=== PATIENT | female | born 1960 | race Caucasian/White ===

== ENCOUNTER 2019-12-19 13:24 | Inpatient (IN) | payer OTHER ==
[~2019-12-19] VITALS: Ht 119.4 cm; Wt 77.3 kg
[~2019-12-19 13:24] MED LIST: ALBU90OI61 INH; Diclofenac Sodi50 MG PO; LOSA25 PO; TROSPIUM CHLORI20 MG PO; VITAMIN D50000 UNIT PO
[2019-12-19 14:49] LABS: BASOPHILS ABSOLUTE AUTO 0.04 K/mm3 (0.00-0.23); BASOPHILS PERCENT AUTO 0 % (0-2); EOSINOPHILS ABSOLUTE AUTO 0.07 K/mm3 (0.00-0.68); EOSINOPHILS PERCENT AUTO 1 % (0-6); Hematocrit 37.7 % (33.0-51.0); IMMATURE GRAN ABSOLUTE AUTO 0.16 K/mm3 (0.00-0.10); IMMATURE GRAN PERCENT AUTO 1 % (0-1); LYMPHOCYTES ABSOLUTE AUTO 1.45 K/mm3 (0.84-5.20); LYMPHOCYTES PERCENT AUTO 10 % (21-46); MONOCYTES ABSOLUTE AUTO 0.99 K/mm3 (0.16-1.47); MONOCYTES PERCENT AUTO 7 % (4-13); Mean Corpuscular HGB 26.8 pg (26.0-34.0); Mean Corpuscular HGB Conc 31.8 g/dL (31.5-36.5); Mean Corpuscular Volume 84 fL (80-100); Mean Platelet Volume 9.7 fL (9.1-12.4); NEUTROPHILS ABSOLUTE AUTO 11.66 K/mm3 (1.96-9.15); NEUTROPHILS PERCENT AUTO 81 % (41-73); Platelet Count 461 K/mm3 (150-400); RDW Coefficient Variation 15.4 % (11.7-14.2); Red Blood Cell Count 4.47 M/mm3 (3.80-5.20); White Blood Cell Count 14.37 K/mm3 (4.00-11.30)
[2019-12-19 15:17] LABS: Alanine Aminotransfer (ALT/SGP 21 U/L (12-78); Albumin, Blood 2.3 g/dL (3.4-5.0); Albumin/Globulin Ratio 0.5 (0.8-1.8); Alk Phos 77 U/L (50-136); Anion Gap 6 mmol/L (6-16); Aspartate Aminotrans (AST/SGOT 16 U/L (12-37); Bilirubin, Total 0.4 mg/dL (0.1-1.0); Blood Urea Nitrogen 20 mg/dL (8-24); CO2, Blood 25 mmol/L (21-32); Calcium, Blood 8.5 mg/dL (8.5-10.1); Chloride, Blood 108 mmol/L (98-108); Creatinine, Blood 0.51 mg/dL (0.40-1.00); Globulin, Blood 4.6 g/dL (2.2-4.0); Glomerular Filtration Rate >60 (60-); Glucose, Blood 104 mg/dL (70-99); Potassium, Blood 3.8 mmol/L (3.5-5.5); Sodium, Blood 139 mmol/L (136-145); Total Protein, Blood 6.9 g/dL (6.4-8.2)
[2019-12-19] MEDS ORDERED: ALBU90OI INH (16:17)
[2019-12-19 19:08] LABS: International Normalized Ratio 1.17; Prothrombin Time Results 12.4 Sec (9.7-11.5)
[2019-12-19] MEDS ORDERED: Buspirone HCl15 MG PO (19:12)
[2019-12-19] MEDS ORDERED: CYCL10 PO (19:12)
[2019-12-20 04:58] LABS: BASOPHILS ABSOLUTE AUTO 0.03 K/mm3 (0.00-0.23); BASOPHILS PERCENT AUTO 0 % (0-2); EOSINOPHILS ABSOLUTE AUTO 0.11 K/mm3 (0.00-0.68); EOSINOPHILS PERCENT AUTO 1 % (0-6); Hematocrit 32.7 % (33.0-51.0); Hemoglobin 9.9 g/dL (11.5-16.0); IMMATURE GRAN PERCENT AUTO 1 % (0-1); LYMPHOCYTES ABSOLUTE AUTO 1.94 K/mm3 (0.84-5.20); LYMPHOCYTES PERCENT AUTO 24 % (21-46); MONOCYTES PERCENT AUTO 7 % (4-13); Mean Corpuscular HGB 26.1 pg (26.0-34.0); Mean Corpuscular HGB Conc 30.3 g/dL (31.5-36.5); Mean Corpuscular Volume 86 fL (80-100); Mean Platelet Volume 9.7 fL (9.1-12.4); NEUTROPHILS ABSOLUTE AUTO 5.48 K/mm3 (1.96-9.15); NEUTROPHILS PERCENT AUTO 66 % (41-73); Platelet Count 410 K/mm3 (150-400); RDW Coefficient Variation 15.6 % (11.7-14.2); RDW Standard Deviation 48.7 fL (35.1-46.3); Red Blood Cell Count 3.79 M/mm3 (3.80-5.20); White Blood Cell Count 8.26 K/mm3 (4.00-11.30)
[2019-12-20 05:24] LABS: Anion Gap 7 mmol/L (6-16); Blood Urea Nitrogen 17 mg/dL (8-24); Bun/Creatinine Ratio 37.7 (12.0-20.0); CO2, Blood 21 mmol/L (21-32); Calcium, Blood 7.4 mg/dL (8.5-10.1); Chloride, Blood 113 mmol/L (98-108); Creatinine, Blood 0.45 mg/dL (0.40-1.00); Glomerular Filtration Rate >60 (60-); Glucose, Blood 78 mg/dL (70-99); Potassium, Blood 3.9 mmol/L (3.5-5.5); Sodium, Blood 141 mmol/L (136-145)
--- NOTE | 2019-12-20 06:03 | NUR ---
SUMMARY PT ARRIVED TO FLOOR IN NO DISTRESS. PT AOX4. PT ONLY REQUEST WAS TO SLEEP. PT SKIN WAS CLEANED AND DRIED. PICTURES OF SKIN ISSUES WERE TAKEN AND PLACED IN CHART. PT REPORTS THIS AM THE URGE TO VOID BUT UNABLE TO VIA BEDPAN. PT BLADDER SCAN SHOWED ONLY 350 ML. PT ONLY COMPLAINT IS LOW BACK PAIN THAT IS RESOLVED WITH REPOSITIONING IN BED. NYSTATIN HAS BEEN ORDERED FOR SKIN FOLD YEAST ISSUES. PT HAS BEEN SLEEPING T/O SINCE ARRIVING TO FLOOR. PROVIDER CONSULT WAS CALLED IN. PT CURRENTLY SLEEPIN AND BREATHING EASY. CALL LIGHT IN REACH.
[2019-12-20 06:04] LABS: Adenovirus Not Detected (NOT DETECT); Bordetella pertussis Not Detected (NOT DETECT); Chlamydophila pneumoniae Not Detected (NOT DETECT); Coronavirus 229E Not Detected (NOT DETECT); Coronavirus HKU1 Not Detected (NOT DETECT); Coronavirus NL63 Not Detected (NOT DETECT); Coronavirus OC43 Not Detected (NOT DETECT); Human Metapneumovirus Not Detected (NOT DETECT); Human Rhinovirus/Enterovirus Not Detected (NOT DETECT); Influenza A Not Detected (NOT DETECT); Influenza A/2009-H1 Not Detected (NOT DETECT); Influenza A/H1 Not Detected (NOT DETECT); Influenza A/H3 Not Detected (NOT DETECT); Influenza B Not Detected (NOT DETECT); Mycoplasma pneumoniae Not Detected (NOT DETECT); Parainfluenza Virus 1 Not Detected (NOT DETECT); Parainfluenza Virus 2 Not Detected (NOT DETECT); Parainfluenza Virus 3 Not Detected (NOT DETECT); Parainfluenza Virus 4 Not Detected (NOT DETECT); Respiratory Syncytial Virus Not Detected (NOT DETECT)
[2019-12-20 11:05] LABS: Source, Urine Catheter
[2019-12-20 11:16] LABS: Bilirubin, Urine Neg (Neg); Blood, Urine Neg (Neg); Glucose Qualitative, Urine Neg (Neg); Ketones, Urine 1+ (Neg); Leukocyte Esterase, Urine Neg (Neg); Nitrite, Urine Neg (Neg); Protein, Urine 1+ (Neg); Specific Gravity, Urine 1.025 (1.003-1.022); Urobilinogen, Urine 1+ (Normal)
[2019-12-20 11:30] LABS: Color, Urine Yellow (P-Yellow)
[2019-12-20 11:32] LABS: Appearance, Urine Hazy (Clear)
[2019-12-20 11:33] LABS: White Blood Cells, Urine 0-2 /hpf (0-5)
[2019-12-20 11:34] LABS: Bacteria Rare /hpf; Calcium Oxalate Crystals Mod /hpf; Mucus Light (0-Heavy); Squamous Epithelial Cells Few /hpf (Few)
--- NOTE | 2019-12-20 17:21 | NUR ---
ALERT. ORIENTED. LIU PLACED FOR RETENTION. FOLDS CLEANED AND NYSTAIN POWDER PLACED. NONSURGICAL WOUND TO LEFT BUTTOCK. DRESSING CHANGED X 2 TODAY W/MODERATE AMOUNT OF DRAINAGE. TURNED Q 2 AND EITHER FLOATED OR UNTO RT SIDE. IV PATENT W/FLUIDS RUNNING. MEDS FOR VOMITING WITH GOOD RESULTS. NO ACUTE CHANGES. WCTM
[2019-12-20 19:52] LABS: Vancomycin, Trough 20.1 ug/mL (5.0-10.0)
--- NOTE | 2019-12-21 05:05 | NUR ---
GLUE LINE OPERATOR SUMMARY PT AAOX4 AND PLEASANT. CALLS APPROPRIATELY FOR ASSISTANCE. PT BEDREST FOR THE MOST PART AND REQUIRES ASSISTANCE WITH REPOSITIONING AND TOILETING WITH BEDPAN. DRESSING ON L THIGH/BUTTOCK WOUND C/D/I, TO BE CHANGED LATER TODAY ORDERS ARE FOR DAILY CHANGE. PT HAS BEEN VERY NAUSEAS TONIGHT AND HAS VOMITED MULTIPLE TIMES, MOSTLY AFTER EATING/DRINKING. MEDICATED WITH PHENERGAN AND ZOFRAN MULTIPLE TIMES PER EMAR. PT ABLE TO GET 3-4 HOURS OF SLEEP IN BETWEEN DOSES OF NAUSEA MEDICATION. PT UNABLE TO KEEP DOWN BEDTIME MEDS DUE TO NAUSEA. HAS BEEN TACHY ON TELEMETRY WIT HR 110-120'S. OTHER VSS, WILL CONTINUE TO MONITOR.
[2019-12-21 05:29] LABS: BASOPHILS ABSOLUTE AUTO 0.03 K/mm3 (0.00-0.23); BASOPHILS PERCENT AUTO 0 % (0-2); EOSINOPHILS ABSOLUTE AUTO 0.03 K/mm3 (0.00-0.68); EOSINOPHILS PERCENT AUTO 0 % (0-6); Hemoglobin 10.8 g/dL (11.5-16.0); IMMATURE GRAN ABSOLUTE AUTO 0.09 K/mm3 (0.00-0.10); IMMATURE GRAN PERCENT AUTO 1 % (0-1); LYMPHOCYTES ABSOLUTE AUTO 1.19 K/mm3 (0.84-5.20); LYMPHOCYTES PERCENT AUTO 15 % (21-46); MONOCYTES ABSOLUTE AUTO 0.48 K/mm3 (0.16-1.47); MONOCYTES PERCENT AUTO 6 % (4-13); Mean Corpuscular HGB 26.2 pg (26.0-34.0); Mean Corpuscular Volume 87 fL (80-100); Mean Platelet Volume 9.5 fL (9.1-12.4); NEUTROPHILS PERCENT AUTO 77 % (41-73); Platelet Count 477 K/mm3 (150-400); RDW Coefficient Variation 15.5 % (11.7-14.2); RDW Standard Deviation 48.8 fL (35.1-46.3); Red Blood Cell Count 4.12 M/mm3 (3.80-5.20); White Blood Cell Count 8.02 K/mm3 (4.00-11.30)
[2019-12-21 05:55] LABS: Anion Gap 5 mmol/L (6-16); Blood Urea Nitrogen 13 mg/dL (8-24); Bun/Creatinine Ratio 23.9 (12.0-20.0); CO2, Blood 24 mmol/L (21-32); Calcium, Blood 8.2 mg/dL (8.5-10.1); Chloride, Blood 112 mmol/L (98-108); Creatinine, Blood 0.54 mg/dL (0.40-1.00); Glomerular Filtration Rate >60 (60-); Glucose, Blood 106 mg/dL (70-99); Potassium, Blood 4.1 mmol/L (3.5-5.5); Sodium, Blood 141 mmol/L (136-145)
--- NOTE | 2019-12-21 19:21 | NUR ---
sleepy since medicated for n/v this am, rousable but sleepy no complaint of n/v, call light in reach, wound changed, 02 increased to 3.5 L via nc and canula placed in [facility] while sleeping to keep 02 stats up, abx infusing with no s/sx of infection or infiltration, bsr shared with pt and returning day staff member
--- NOTE | 2019-12-22 05:31 | NUR ---
POWERHOUSE HELPER SUMMARY NAUSEA BETTER CONTROLLED TONIGHT WITH IV COMPAZINE. IV REPLACED BY CONSULTING UTILITY FORESTER USING US GUIDANCE. CONTINUED ON IV VANCO. LEFT THIGH/BUTTOCK WOUND CLEANED AND DRESSING CHANGED TONIGHT, WOUND BED LOOKS GOOD. RASH IN VIOLETA AREA AND UNDER BREASTS AND FOLDS IMPROVING WITH FREQUENT CLEANING AND NYSTATIN POWDER. PT ABLE TO KEEP DOWN ALL PO MEDICATIONS. VSS, WILL CONTINUE TO MONITOR.
[2019-12-22 05:38] LABS: BASOPHILS ABSOLUTE AUTO 0.02 K/mm3 (0.00-0.23); BASOPHILS PERCENT AUTO 0 % (0-2); EOSINOPHILS PERCENT AUTO 0 % (0-6); Hematocrit 37.1 % (33.0-51.0); Hemoglobin 11.2 g/dL (11.5-16.0); IMMATURE GRAN PERCENT AUTO 2 % (0-1); LYMPHOCYTES ABSOLUTE AUTO 1.06 K/mm3 (0.84-5.20); LYMPHOCYTES PERCENT AUTO 11 % (21-46); MONOCYTES ABSOLUTE AUTO 0.44 K/mm3 (0.16-1.47); MONOCYTES PERCENT AUTO 5 % (4-13); Mean Corpuscular HGB 26.7 pg (26.0-34.0); Mean Corpuscular HGB Conc 30.2 g/dL (31.5-36.5); Mean Corpuscular Volume 88 fL (80-100); Mean Platelet Volume 9.4 fL (9.1-12.4); NEUTROPHILS ABSOLUTE AUTO 7.97 K/mm3 (1.96-9.15); NEUTROPHILS PERCENT AUTO 82 % (41-73); Platelet Count 457 K/mm3 (150-400); RDW Coefficient Variation 15.7 % (11.7-14.2); RDW Standard Deviation 50.4 fL (35.1-46.3); White Blood Cell Count 9.69 K/mm3 (4.00-11.30)
[2019-12-22 06:05] LABS: Anion Gap 8 mmol/L (6-16); Blood Urea Nitrogen 13 mg/dL (8-24); Bun/Creatinine Ratio 27.6 (12.0-20.0); CO2, Blood 22 mmol/L (21-32); Chloride, Blood 107 mmol/L (98-108); Creatinine, Blood 0.47 mg/dL (0.40-1.00); Glomerular Filtration Rate >60 (60-); Glucose, Blood 97 mg/dL (70-99); Potassium, Blood 3.9 mmol/L (3.5-5.5); Sodium, Blood 137 mmol/L (136-145)
--- NOTE | 2019-12-22 10:17 | NUR ---
a+o but sleepy, eyes dialated to 4 when first wake up, brisk reaction to light, PERRL, call light in reach, iv infusing with not s/sx of infection or infiltration, powder applied, medications taken with no adverse effects, hands strong pulse feet faint, good profusion all limbs, weak movement numbness in hands, hypo bowel tones 4q, soft nontender, no emisis but states she has felt nausus today, bed in low position, 4L via nc, wheeze throughout
[2019-12-22 11:32] LABS: Vancomycin, Trough 11.6 ug/mL (5.0-10.0)
--- NOTE | 2019-12-22 11:55 | NUR ---
PAULO NOT AVAILABLE SO STARTED NEXT ABX TO KEEP PT ON TRACK
[2019-12-22 15:20] LABS: BASOPHILS ABSOLUTE AUTO 0.02 K/mm3 (0.00-0.23); BASOPHILS PERCENT AUTO 0 % (0-2); EOSINOPHILS ABSOLUTE AUTO 0.02 K/mm3 (0.00-0.68); EOSINOPHILS PERCENT AUTO 0 % (0-6); Hematocrit 37.9 % (33.0-51.0); Hemoglobin 11.6 g/dL (11.5-16.0); IMMATURE GRAN PERCENT AUTO 1 % (0-1); LYMPHOCYTES ABSOLUTE AUTO 0.91 K/mm3 (0.84-5.20); LYMPHOCYTES PERCENT AUTO 9 % (21-46); MONOCYTES ABSOLUTE AUTO 0.43 K/mm3 (0.16-1.47); MONOCYTES PERCENT AUTO 4 % (4-13); Mean Corpuscular HGB 27.2 pg (26.0-34.0); Mean Corpuscular HGB Conc 30.6 g/dL (31.5-36.5); Mean Corpuscular Volume 89 fL (80-100); Mean Platelet Volume 9.4 fL (9.1-12.4); NEUTROPHILS PERCENT AUTO 85 % (41-73); Platelet Count 472 K/mm3 (150-400); RDW Coefficient Variation 15.7 % (11.7-14.2); Red Blood Cell Count 4.26 M/mm3 (3.80-5.20); White Blood Cell Count 10.08 K/mm3 (4.00-11.30)
--- NOTE | 2019-12-22 19:49 | NUR ---
A+O, BREATHING TREATMENT ELEVATED CHEST PRESSURE, CALL LIGHT IN REACH, HOB ELEVATED, IV INFUSING WITH NO S/SX OF INFECTION OR INFILTRATION, BSR SHARED WITH PT AND DAY STAFF
[2019-12-23 05:50] LABS: BASOPHILS ABSOLUTE AUTO 0.04 K/mm3 (0.00-0.23); BASOPHILS PERCENT AUTO 0 % (0-2); EOSINOPHILS ABSOLUTE AUTO 0.05 K/mm3 (0.00-0.68); EOSINOPHILS PERCENT AUTO 1 % (0-6); Hematocrit 37.2 % (33.0-51.0); Hemoglobin 11.4 g/dL (11.5-16.0); IMMATURE GRAN ABSOLUTE AUTO 0.11 K/mm3 (0.00-0.10); IMMATURE GRAN PERCENT AUTO 1 % (0-1); LYMPHOCYTES ABSOLUTE AUTO 1.32 K/mm3 (0.84-5.20); LYMPHOCYTES PERCENT AUTO 14 % (21-46); MONOCYTES ABSOLUTE AUTO 0.56 K/mm3 (0.16-1.47); MONOCYTES PERCENT AUTO 6 % (4-13); Mean Corpuscular HGB 26.6 pg (26.0-34.0); Mean Corpuscular HGB Conc 30.6 g/dL (31.5-36.5); Mean Corpuscular Volume 87 fL (80-100); Mean Platelet Volume 9.6 fL (9.1-12.4); NEUTROPHILS ABSOLUTE AUTO 7.66 K/mm3 (1.96-9.15); NEUTROPHILS PERCENT AUTO 79 % (41-73); Platelet Count 502 K/mm3 (150-400); RDW Coefficient Variation 15.9 % (11.7-14.2); Red Blood Cell Count 4.28 M/mm3 (3.80-5.20); White Blood Cell Count 9.74 K/mm3 (4.00-11.30)
--- NOTE | 2019-12-23 07:35 | NUR ---
SHIFT SUMMARY A/O, ABLE TO MAKE NEEDS KNOWN. COOPERATIVE WITH CARE. CALLS AND ANSWERS QUESTIONS APPROPRIATELY. NO C/O PAIN/DISCOMFORT. DID NOT APPEAR TO REST MUCH OVERNIGHT. TRIED CPAP AND STATED COULD NOT SLEEP WITH IT. DRESSING TO L HIP WOUND CHANGED X2; MODERATE DRAINAGE NOTED. STATES FEELS BETTER THIS AM. REMAINS ON 5L NC. NO ACUTE CHANGES NOTED. VSS/AFEBRILE. BED IN LOWEST POSITION. CALL LIGHT AND BELONGINGS WITHIN REACH. WCTM. REPORT TO ONCOMING RN.
--- NOTE | 2019-12-23 19:06 | NUR ---
NO ACUTE CHANGES. PT HAS SLEPT MOST OF SHIFT. DRESSING CHANGED TO BOTTOM
[2019-12-24 05:24] LABS: BASOPHILS ABSOLUTE AUTO 0.03 K/mm3 (0.00-0.23); BASOPHILS PERCENT AUTO 0 % (0-2); EOSINOPHILS ABSOLUTE AUTO 0.01 K/mm3 (0.00-0.68); EOSINOPHILS PERCENT AUTO 0 % (0-6); Hematocrit 36.5 % (33.0-51.0); Hemoglobin 11.5 g/dL (11.5-16.0); IMMATURE GRAN ABSOLUTE AUTO 0.11 K/mm3 (0.00-0.10); IMMATURE GRAN PERCENT AUTO 1 % (0-1); LYMPHOCYTES ABSOLUTE AUTO 0.91 K/mm3 (0.84-5.20); LYMPHOCYTES PERCENT AUTO 8 % (21-46); MONOCYTES ABSOLUTE AUTO 0.51 K/mm3 (0.16-1.47); MONOCYTES PERCENT AUTO 5 % (4-13); Mean Corpuscular HGB 26.9 pg (26.0-34.0); Mean Corpuscular HGB Conc 31.5 g/dL (31.5-36.5); Mean Corpuscular Volume 85 fL (80-100); Mean Platelet Volume 9.4 fL (9.1-12.4); NEUTROPHILS ABSOLUTE AUTO 9.65 K/mm3 (1.96-9.15); NEUTROPHILS PERCENT AUTO 86 % (41-73); NRBC ABSOLUTE 0.03 K/mm3 (0.00-0.02); NRBC Auto 0.3 /100 WBC (0.0-0.2); Platelet Count 449 K/mm3 (150-400); RDW Coefficient Variation 16.1 % (11.7-14.2); RDW Standard Deviation 47.6 fL (35.1-46.3); Red Blood Cell Count 4.28 M/mm3 (3.80-5.20); White Blood Cell Count 11.22 K/mm3 (4.00-11.30)
[2019-12-24 05:57] LABS: Alanine Aminotransfer (ALT/SGP 36 U/L (12-78); Albumin, Blood 2.2 g/dL (3.4-5.0); Albumin/Globulin Ratio 0.6 (0.8-1.8); Alk Phos 63 U/L (50-136); Anion Gap 4 mmol/L (6-16); Aspartate Aminotrans (AST/SGOT 46 U/L (12-37); Bilirubin, Total 0.4 mg/dL (0.1-1.0); Blood Urea Nitrogen 15 mg/dL (8-24); Bun/Creatinine Ratio 30.1 (12.0-20.0); CO2, Blood 28 mmol/L (21-32); Calcium, Blood 8.2 mg/dL (8.5-10.1); Chloride, Blood 104 mmol/L (98-108); Globulin, Blood 3.8 g/dL (2.2-4.0); Glomerular Filtration Rate >60 (60-); Glucose, Blood 101 mg/dL (70-99); Potassium, Blood 3.5 mmol/L (3.5-5.5); Sodium, Blood 136 mmol/L (136-145)
--- NOTE | 2019-12-24 06:15 | NUR ---
SHIFT SUMMARY ALERT, ABLE TO MAKE NEEDS KNOWN. COOPERATIVE WITH CARE. CALLS AND ANSWERS QUESTIONS APPROPRIATELY. NO C/O PAIN/DISCOMFORT. REPOSITIONED TOLERATED. HELPS WITH CARES MUCH POSSIBLE. REFUSED CPAP WELL CONTINUOUS BIOX. REMAINED ON 5L NC WITH SPO2 >90%. CLEANSED AND RE-DRESSED L BUTTOCKS WOUND X2. MODERATE SEROSANGUINOUS DRAINAGE NOTED. NO ACUTE OVERNIGHT. BED IN LOWEST POSITION; ALARM ON. CALL LIGHT AND BELONGINGS WITHIN REACH. WCTM. REPORT TO ONCOMING RN.
[2019-12-24 12:03] LABS: Vancomycin, Trough 20.9 ug/mL (5.0-10.0)
--- NOTE | 2019-12-24 18:37 | NUR ---
PT ALBE TO GET UP IN CHAIR AFTER BEDBATH. DRESSING TO WOUND ON BUTTOCKS CHANGED BY NURSE. PT WAS MORE TALKATIVE AND ALERT THIS SHIFT THAN PREVIOUS ONE. SHE IS FRIENDLY AND COMPLIANT WITH CARES. SHE REQUESTED PT EVAL AND A WALKER HER SIZE. ORDERS OK'D BY DOCTOR AND PLACED. CALL LIGHT WITHIN REACH.
[2019-12-25 06:20] LABS: BASOPHILS ABSOLUTE AUTO 0.02 K/mm3 (0.00-0.23); BASOPHILS PERCENT AUTO 0 % (0-2); EOSINOPHILS PERCENT AUTO 0 % (0-6); Hematocrit 36.7 % (33.0-51.0); Hemoglobin 11.8 g/dL (11.5-16.0); IMMATURE GRAN ABSOLUTE AUTO 0.18 K/mm3 (0.00-0.10); IMMATURE GRAN PERCENT AUTO 2 % (0-1); LYMPHOCYTES ABSOLUTE AUTO 0.76 K/mm3 (0.84-5.20); LYMPHOCYTES PERCENT AUTO 7 % (21-46); MONOCYTES ABSOLUTE AUTO 0.46 K/mm3 (0.16-1.47); MONOCYTES PERCENT AUTO 4 % (4-13); Mean Corpuscular HGB 26.9 pg (26.0-34.0); Mean Corpuscular HGB Conc 32.2 g/dL (31.5-36.5); Mean Corpuscular Volume 84 fL (80-100); NEUTROPHILS ABSOLUTE AUTO 9.72 K/mm3 (1.96-9.15); NEUTROPHILS PERCENT AUTO 87 % (41-73); RDW Coefficient Variation 16.6 % (11.7-14.2); RDW Standard Deviation 46.1 fL (35.1-46.3); Red Blood Cell Count 4.38 M/mm3 (3.80-5.20); White Blood Cell Count 11.14 K/mm3 (4.00-11.30)
[2019-12-25 06:22] LABS: Mean Platelet Volume 10.2 fL (9.1-12.4); Platelet Count 393 K/mm3 (150-400)
--- NOTE | 2019-12-25 07:48 | NUR ---
SHIFT SUMMARY ALERT, ABLE TO MAKE NEEDS KNOWN. COOPERATIVE WITH CARE. CALLS AND ANSWERS QUESTIONS APPROPRIATELY. NO C/O PAIN/DISCOMFORT. REPOSITIONED TOLDERATED. REQUIRED NEW IV PREVIOUS HAD INFILTRATED. DRESSING CLEANSED AND RE-DRESSED. NO ACUTE CHANGES NOTED. BED IN LOWEST POSITION. CALL LIGHT AND BELONGINGS WITHIN REACH. WCTM. REPORT TO ONCOMING RN.
--- NOTE | 2019-12-25 13:18 | NUR ---
SHE SAT UP IN A RECLINER CHAIR FOR 2 AND A HALF HRS THIS MORNING. SHE WALKED SOME STEPS WITH PT BUT THEN NEEDED TO BE RAISED WITH A LIFT TO GET INTO THE CHAIR. WE DO NOT HAVE A CHAIR THAT SHE CAN GET UP INTO. SHE NO LONGER HAS A CHAIR AT HOME EITHER. SHE SITS ON A FOOT STOOL WHICH CAUSES PRESSURE ON HER DORSAL THIGH. THE FOAM DRESSING IS INTACT. SHE IS ON HER RT SIDE IN THE BED EXCEPT FOR EATING. NO COMPLAINTS.
--- NOTE | 2019-12-25 18:05 | NUR ---
SHE JUST TRIED TO HAVE A BM ON THE BEDPAN BUT WAS UNABLE TO. SHE WAS OOB INTO THE RECLINER THIS MORNING BUT SPENT THE REST OF THE DAY IN THE BED, MOSTLY ON HER RT SIDE. SHE EATS SMALL AMTS. TELE NSR. NO SOB, O2 WEANED FROM 5L TO 3L. SHE IS 90% ON 3L. AFEBRILE. LIU PATENT.LEFT SHOULDER IV INFUSES TKO @ 5 MLS/HR. PT WORKED WITH HER THIS AM. SHE NEEDS A LIFT FOR MOBILIZATION.
--- NOTE | 2019-12-26 03:53 | NUR ---
PATIENT HAVING TROUBLE SLEEPING. ASKED FOR SLEEPING MEDICATIONS. CALL OUT TO DOCTOR KWAME. ORDER RECIEVED FOR AMBIEN 2.5MG X1. RETURNED TO ROOM. PATIENT WAS SLEEPING.
[2019-12-26 05:00] LABS: BASOPHILS ABSOLUTE AUTO 0.02 K/mm3 (0.00-0.23); BASOPHILS PERCENT AUTO 0 % (0-2); EOSINOPHILS ABSOLUTE AUTO 0.02 K/mm3 (0.00-0.68); EOSINOPHILS PERCENT AUTO 0 % (0-6); Hematocrit 38.8 % (33.0-51.0); Hemoglobin 12.2 g/dL (11.5-16.0); IMMATURE GRAN ABSOLUTE AUTO 0.17 K/mm3 (0.00-0.10); IMMATURE GRAN PERCENT AUTO 1 % (0-1); LYMPHOCYTES PERCENT AUTO 4 % (21-46); MONOCYTES ABSOLUTE AUTO 1.26 K/mm3 (0.16-1.47); MONOCYTES PERCENT AUTO 7 % (4-13); Mean Corpuscular HGB 26.8 pg (26.0-34.0); Mean Corpuscular HGB Conc 31.4 g/dL (31.5-36.5); Mean Corpuscular Volume 85 fL (80-100); Mean Platelet Volume 9.7 fL (9.1-12.4); NEUTROPHILS ABSOLUTE AUTO 14.87 K/mm3 (1.96-9.15); NEUTROPHILS PERCENT AUTO 87 % (41-73); Platelet Count 429 K/mm3 (150-400); RDW Coefficient Variation 17.2 % (11.7-14.2); RDW Standard Deviation 46.8 fL (35.1-46.3); Red Blood Cell Count 4.56 M/mm3 (3.80-5.20); White Blood Cell Count 17.04 K/mm3 (4.00-11.30)
[2019-12-26 05:17] LABS: Alanine Aminotransfer (ALT/SGP 28 U/L (12-78); Albumin, Blood 2.3 g/dL (3.4-5.0); Albumin/Globulin Ratio 0.6 (0.8-1.8); Alk Phos 59 U/L (50-136); Anion Gap 6 mmol/L (6-16); Aspartate Aminotrans (AST/SGOT 27 U/L (12-37); Bilirubin, Total 0.4 mg/dL (0.1-1.0); Blood Urea Nitrogen 20 mg/dL (8-24); Bun/Creatinine Ratio 23.6 (12.0-20.0); CO2, Blood 31 mmol/L (21-32); Calcium, Blood 8.4 mg/dL (8.5-10.1); Chloride, Blood 102 mmol/L (98-108); Creatinine, Blood 0.85 mg/dL (0.40-1.00); Globulin, Blood 3.7 g/dL (2.2-4.0); Glomerular Filtration Rate >60 (60-); Glucose, Blood 118 mg/dL (70-99); Potassium, Blood 3.2 mmol/L (3.5-5.5); Sodium, Blood 139 mmol/L (136-145)
--- NOTE | 2019-12-26 05:47 | NUR ---
SHIFT SUMMARY: ALEXSANDRA HAS HAD A ROUGH NIGHT, NOT BEING ABLE TO SLEEP GOOD. SHE HAS SLEPT OFF AND ON CAUSING HER TO BE IRRTABLE AND RESTLESS. SHE WAS GIVEN NORCO TO HELP RELAX HER AND THAT LASTED ONLY FOR AN HOUR OR TWO THEN SHE WAS BACK AWAKE. EVENTULLY WAS ABLE TO GET HER A ONE TIME DOSE OF AMBIEN AGAIN WORKED FOR ONLY A SHORT PERIOD OF TIME. SHE HAS BEEN SOB MOST OF THE NIGHT BUT REFUSED ANY BREATHING TREATMENT. SHE DID HAVE LARGE BM. CATHETER HAS REMAINED PATENT AND DRAINING. DRESSING TO LEG HAS REMAINED INTACT. OXYGEN SATS HAVE REMAINED IN THE 90'S. VS HAVE REMAINED WITH IN NORMAL LIMITS. NO OTHER ACUTE CHANGES OCCURRED THIS SHIFT.
--- NOTE | 2019-12-26 13:28 | NUR ---
Patient gave Malachi Crane, Student Nurse permission to view medical charts for patient care. 12/26/2019 at 1320.
--- NOTE | 2019-12-26 13:32 | NUR ---
SHE WAS AWAKENED FROM A NAP FOR A DOSE OF POTASSIUM AND FOR THE RN UNIT MANAGER TO DRAW A VANCO TROUGH. I ENCOURAGED HER TO TRY TO STAY AWAKE SO STHAT SHE CAN SLEEP TONIGHT. NO FEVER. WHITE COUNT WENT UP AND POTASSIUM DOWN. TELE ONGOING. SHE HAS C/O HER SKIN ITCHING AND REQUESTS CREAM. WILL ASK .
[2019-12-26 14:00] LABS: Vancomycin, Trough 22.2 ug/mL (5.0-10.0)
--- NOTE | 2019-12-26 18:57 | NUR ---
NO CHANGES. SHE DANGLED TWICE TODAY FOR A COUPLE OF HRS EACH.
--- NOTE | 2019-12-26 21:02 | NUR ---
2101- ALEXSANDRA WAS SLEEPING WHEN I GOT TO THE ROOM, SHE WOKE WHEN NAME WAS CALLED. SHE STATES SHE WANTS TO SLEEP TONIGHT. ASKED IF SHE HAD A SLEEPING PILL FOR TONIGHT, INFORMED HER NO, BUT IF SOMEONE CALLS OUT TO MD WILL GET AN ORDER FOR ONE. SHE DENIED ANY ACUTE CHANGES OTHER THEN SHE FEELS SHE IS BREATHING BETTER. LUNG SOUNDS ARE DIMINISHED AT THIS TIME, OXYGEN IS STILL 3 LITERS SATS IN THE 90'S. DENIES ANY PAIN OR DISCOMFORT. SHE TOOK HER MEDS AND CLOSED HER EYES ASKING FOR LIGHT TO BE TURNED OFF. CALL LIGHT GIVEN.
[2019-12-27 05:04] LABS: PO2 Arterial 55.9 mmHg (80-100); pH Blood Arterial 7.51 (7.35-7.45)
--- NOTE | 2019-12-27 06:10 | NUR ---
SHIFT SUMMARY: ALEXSANDRA HAD A BETTER NIGHT TONIGHT. SHE GOT SOME SLEEP ON AND OFF TONIGHT. BREATHING HAS BEEN BETTER, NOT SOB HAS SHE HAS BEEN. LUNG SOUNDS ARE DIMINISHED. SATS REMAINED IN THE 90'S ON 3 LITERS OF O2. NO PAIN OR DISCOMFORT NOTED TONIGHT. OCCATIONAL COUGHS NOTED, NO PRODUCTION. DRESSING TO POSTERIOR RIGHT LEG REMAINS INTACT. VS REMAIN WNL. NO OTHER ACUTE CHANGES TO REPORT.
[2019-12-27 06:13] LABS: Albumin, Blood 2.3 g/dL (3.4-5.0); Anion Gap 6 mmol/L (6-16); Blood Urea Nitrogen 27 mg/dL (8-24); Bun/Creatinine Ratio 24.8 (12.0-20.0); CO2, Blood 30 mmol/L (21-32); Calcium, Blood 8.4 mg/dL (8.5-10.1); Chloride, Blood 103 mmol/L (98-108); Creatinine, Blood 1.09 mg/dL (0.40-1.00); Glomerular Filtration Rate 55 (60-); Glucose, Blood 91 mg/dL (70-99); Phosphorus, Blood 3.9 mg/dL (2.5-4.9); Potassium, Blood 3.3 mmol/L (3.5-5.5); Sodium, Blood 139 mmol/L (136-145)
[2019-12-27 07:47] LABS: BASOPHILS ABSOLUTE AUTO 0.01 K/mm3 (0.00-0.23); BASOPHILS PERCENT AUTO 0 % (0-2); EOSINOPHILS ABSOLUTE AUTO 0.08 K/mm3 (0.00-0.68); EOSINOPHILS PERCENT AUTO 1 % (0-6); Hematocrit 38.9 % (33.0-51.0); Hemoglobin 12.3 g/dL (11.5-16.0); IMMATURE GRAN ABSOLUTE AUTO 0.18 K/mm3 (0.00-0.10); IMMATURE GRAN PERCENT AUTO 1 % (0-1); LYMPHOCYTES ABSOLUTE AUTO 1.25 K/mm3 (0.84-5.20); LYMPHOCYTES PERCENT AUTO 7 % (21-46); MONOCYTES ABSOLUTE AUTO 1.25 K/mm3 (0.16-1.47); MONOCYTES PERCENT AUTO 7 % (4-13); Mean Corpuscular HGB 27.2 pg (26.0-34.0); Mean Corpuscular HGB Conc 31.6 g/dL (31.5-36.5); Mean Corpuscular Volume 86 fL (80-100); Mean Platelet Volume 9.8 fL (9.1-12.4); NEUTROPHILS ABSOLUTE AUTO 14.45 K/mm3 (1.96-9.15); NEUTROPHILS PERCENT AUTO 84 % (41-73); Platelet Count 360 K/mm3 (150-400); RDW Coefficient Variation 17.1 % (11.7-14.2); RDW Standard Deviation 48.7 fL (35.1-46.3); Red Blood Cell Count 4.53 M/mm3 (3.80-5.20); White Blood Cell Count 17.22 K/mm3 (4.00-11.30)
--- NOTE | 2019-12-27 18:09 | NUR ---
SHIFT SUMMARY PATIENT LIU WAS D/C'D. SHE IS INCONTINENT OF URINE. MONITORING VAGINAL BLEEDING, NOTED 1X WHILE WIPING PATIENT VAGINAL AREA. NO BLEEDING NOTED DURING SECOND ATTENDS CHANGE.
--- NOTE | 2019-12-27 22:39 | NUR ---
2104- PATIENT LAYING IN BED, CATHETER WAS REMOVED TODAY. VOIDING WELL IN ATTENDS. ATTENDS DRY AT THIS TIME. SHE APPEARS MORE SOB THEN USUAL. RT IN ROOM GIVING BREATHING TREATMENT. LUNG SOUNDS ARE DIMINISHED WITH EXPIRTORY WHEEZES IN THE UPPER LOBES. DRESSING TO BACK OF THIGH IS INTAKE. DENIES ANY PAIN. NO IV ACCESS NOTED. WILL CONTINUE TO MONITOR.
--- NOTE | 2019-12-28 04:43 | NUR ---
PATIENT HAS BEEN VOIDING FREQUENTLY IN HER ATTENDS THROUGHOUT THE NIGHT, BUT SHE FEELS LIKE SHE CONSTANTLY HAS TO GO. STATES SHE DOES NOT THINK SHE IS EMPTING HER BLADDER. BLADDER SCAN SHOWED 747CC IN THE BLADDER POST VOID. WILL CALL MD REGARDING THIS.
--- NOTE | 2019-12-28 05:32 | NUR ---
CALLED MD REGARDING URINARY RETENTION AFTER CATHETER REMOVAL. ORDER RECEIVED FOR PV STRAIGHT CATH OVER 400. STRAIGHT CATH THE PATIENT, RECEIVED 800CC OF CLEAR YELLOW URINE. PATIENT TOLERATED WELL. VAGINAL BLEEDING STILL NOTED.
--- NOTE | 2019-12-28 05:33 | NUR ---
SHIFT SUMMARY: ALEXSANDRA VS HAVE BEEN STABLE. NO PAIN HAS BEEN NOTED. SHE HAS BEEN VOIDING FREQUENTLY IN ATTENDS THROUGHOUT THE NIGHT TILL THIS AM, WHERE SHE FELT SHE WAS NOT EMPTYING HER BLADDER. BLADDER SCAN SHOWED 747. CALLED DR. RENO, ORDER RECEIVED FOR STRAIGHT CATH. STRAIGHT CATH PERFORM 800CC OUTPUT. VAGINAL BLEEDING STILL PRESENT. DRESSING TO BACK OF THIGH WAS CHANGED, WOUND WITH GRANULATION TISSUE, AND SLOUGH, ROLLED EDGES, SEROUS SANGUOUS DRAINAGE. LUNG SOUNDS HAVE REMAINED DIMINISHED, STILL ON 2 LITERS OF 02, SATS IN LOW 90'S. ENCOURAGED INSPIRMETER EXERCISES. NO OTHER ACUTE CHANGES TO REPORT THIS SHIFT.
[2019-12-28 07:20] LABS: BASOPHILS ABSOLUTE AUTO 0.03 K/mm3 (0.00-0.23); BASOPHILS PERCENT AUTO 0 % (0-2); EOSINOPHILS ABSOLUTE AUTO 0.12 K/mm3 (0.00-0.68); EOSINOPHILS PERCENT AUTO 1 % (0-6); Hematocrit 39.4 % (33.0-51.0); Hemoglobin 12.4 g/dL (11.5-16.0); IMMATURE GRAN ABSOLUTE AUTO 0.16 K/mm3 (0.00-0.10); IMMATURE GRAN PERCENT AUTO 1 % (0-1); LYMPHOCYTES ABSOLUTE AUTO 1.28 K/mm3 (0.84-5.20); LYMPHOCYTES PERCENT AUTO 7 % (21-46); MONOCYTES ABSOLUTE AUTO 1.13 K/mm3 (0.16-1.47); MONOCYTES PERCENT AUTO 6 % (4-13); Mean Corpuscular HGB 26.6 pg (26.0-34.0); Mean Corpuscular HGB Conc 31.5 g/dL (31.5-36.5); Mean Corpuscular Volume 84 fL (80-100); Mean Platelet Volume 9.8 fL (9.1-12.4); NEUTROPHILS ABSOLUTE AUTO 15.01 K/mm3 (1.96-9.15); NEUTROPHILS PERCENT AUTO 85 % (41-73); Platelet Count 337 K/mm3 (150-400); RDW Coefficient Variation 17.2 % (11.7-14.2); RDW Standard Deviation 47.6 fL (35.1-46.3); Red Blood Cell Count 4.67 M/mm3 (3.80-5.20); White Blood Cell Count 17.73 K/mm3 (4.00-11.30)
[2019-12-28 07:44] LABS: Albumin, Blood 2.6 g/dL (3.4-5.0); Anion Gap 6 mmol/L (6-16); Blood Urea Nitrogen 27 mg/dL (8-24); Bun/Creatinine Ratio 22.7 (12.0-20.0); CO2, Blood 31 mmol/L (21-32); Chloride, Blood 102 mmol/L (98-108); Creatinine, Blood 1.19 mg/dL (0.40-1.00); Glomerular Filtration Rate 50 (60-); Glucose, Blood 83 mg/dL (70-99); Phosphorus, Blood 4.4 mg/dL (2.5-4.9); Potassium, Blood 3.8 mmol/L (3.5-5.5); Sodium, Blood 139 mmol/L (136-145)
[2019-12-28 07:50] LABS: Vancomycin, Trough 26.2 ug/mL (5.0-10.0)
--- NOTE | 2019-12-28 18:43 | NUR ---
SHIFT SUMMARY PATIENT HAS HAD MINIMAL OUTPUT WHEN VOIDING. BLADDER SCAN AND STRAIGHT CATH X1 THIS SHIFT. CONTINUES TO REQUIRE 2L O2. SHE IS ABLE TO MAKE HER NEEDS KNOWN. WORKED WITH PT/OT AND HER SISTER TO MAKE SAFE DISCHARGING PLAN. DRESSING APPLIED TO COCCYX. CHANGED X2 DUE TO STOOL ON WOUND.
--- NOTE | 2019-12-28 21:23 | NUR ---
12/28/192119 Incontinent of urine and bladder scan= [address] 950 ml clear,yellow urine. Veronica-care given but refused to turn on side. Call patel within reach.
--- NOTE | 2019-12-29 05:00 | NUR ---
12/29/19 0500 BLADDER SCAN= 846 ML AFTER INCONTINENCE AT 0345. ST. CATHED 1100 ML MONI URINE. VIOLETA-CARE GIVEN. NEW DRESSING APPLIED TO ULCER ON LEFT INNER THIGH AFTER CLEANSING WOUND CREDENTIALER. VITALS REMAIN STABLE. HAD ONLY ABOUT 1/2 TSP OF VAGINAL BLEED.
[2019-12-29 06:15] LABS: Vancomycin, Random 14.7 ug/mL
--- NOTE | 2019-12-29 17:44 | NUR ---
attemtpted to visit with patient will try again.
--- NOTE | 2019-12-29 18:30 | NUR ---
SHIFT SUMMARY ATTEMPTED TO WEAN PATIENT FROM O2 DROPPED DOWN INTO THE 80'S. PLACED BACK ON 2L O2. PATIENT WORKED WITH PT AND OT, UP IN CHAIR FOR THE MORNING. SHE ALSO WORKED ON EXERCISES GIVEN BY THERAPY TEAM. PATIENT IN GOOD SPIRITS TODAY. MEPILEX TO COCCYX CHANGED 3X TODAY WHEN BEING REPOSITIONED. FROM THE LAST TWO DAYS THIS PATIENT ABILITY TO ASSIST IN TURNS HAS IMPROVED SIGNIFICANTLY. SHE CONTINUES TO HAVE RETENTION REQUIRING STRAIGHT CATH 2X THIS SHIFT. COOPERATIVE WITH CARES. MAKES NEEDS KNOWN. NO ACUTE COMPLAINTS.
--- NOTE | 2019-12-29 22:30 | NUR ---
PT HAS BEEN INC SEVERAL TIMES AND PVR SHOWS 491 ML BLADDER VOLUME STAIGHT CATH RETURNED 475 ML. DRESSING ON LEFT BUTTOCK CHANGED. PT RESTING QUIETLY AT THIS TIME. BED LOW AND LOCKED. CALL ARRIOLA WITHIN REACH.
--- NOTE | 2019-12-30 03:53 | NUR ---
0245: LINEN CHANGE/PT INC OF BOWEL. BLADDER SCAN SHOWED 530 ML BLADDER VOLUME. STRAINGHT CATH RETURNED 450ML. DRESSING CHANGED. BED LOW AND LOCKED. WILL CONTINUE TO MONITOR. CALL ARRIOLA WITHIN REACH.
--- NOTE | 2019-12-30 04:43 | NUR ---
PT C/O BACK PAIN, GAVE FLEXERIL AND A NORCON PER EMAR FOR 6/10 PAIN. WILL CONTINUE TO MONITOR
[2019-12-30 05:48] LABS: BASOPHILS ABSOLUTE AUTO 0.04 K/mm3 (0.00-0.23); BASOPHILS PERCENT AUTO 0 % (0-2); EOSINOPHILS ABSOLUTE AUTO 0.23 K/mm3 (0.00-0.68); EOSINOPHILS PERCENT AUTO 1 % (0-6); Hematocrit 40.4 % (33.0-51.0); Hemoglobin 12.6 g/dL (11.5-16.0); IMMATURE GRAN PERCENT AUTO 1 % (0-1); LYMPHOCYTES ABSOLUTE AUTO 1.44 K/mm3 (0.84-5.20); LYMPHOCYTES PERCENT AUTO 8 % (21-46); MONOCYTES ABSOLUTE AUTO 0.92 K/mm3 (0.16-1.47); MONOCYTES PERCENT AUTO 5 % (4-13); Mean Corpuscular HGB 26.9 pg (26.0-34.0); Mean Corpuscular HGB Conc 31.2 g/dL (31.5-36.5); Mean Corpuscular Volume 86 fL (80-100); Mean Platelet Volume 10.9 fL (9.1-12.4); NEUTROPHILS ABSOLUTE AUTO 15.43 K/mm3 (1.96-9.15); NEUTROPHILS PERCENT AUTO 85 % (41-73); Platelet Count 325 K/mm3 (150-400); RDW Coefficient Variation 17.9 % (11.7-14.2); RDW Standard Deviation 51.1 fL (35.1-46.3); Red Blood Cell Count 4.69 M/mm3 (3.80-5.20); White Blood Cell Count 18.26 K/mm3 (4.00-11.30)
[2019-12-30 06:11] LABS: Albumin, Blood 2.5 g/dL (3.4-5.0); Anion Gap 6 mmol/L (6-16); Blood Urea Nitrogen 34 mg/dL (8-24); CO2, Blood 29 mmol/L (21-32); Calcium, Blood 8.9 mg/dL (8.5-10.1); Chloride, Blood 100 mmol/L (98-108); Creatinine, Blood 1.31 mg/dL (0.40-1.00); Glomerular Filtration Rate 44 (60-); Glucose, Blood 108 mg/dL (70-99); Potassium, Blood 4.6 mmol/L (3.5-5.5); Sodium, Blood 135 mmol/L (136-145)
--- NOTE | 2019-12-30 06:39 | NUR ---
END OF SHIFT NOTE: PLEASANT AND COOPERATIVE PATIENT CONTINUES TO HAVE RETENTION PROBLEMS THIS NOC SHIFT. SHE WAS BLADDER SCANNED PRN AND STRAIGHT CATHED X2 THIS SHIFT. SHE ALSO HAS HAD SEVERAL "OATMEAL" CONSISTANCY BOWEL MOVEMENTS. THEY ARE NOTEDLY NOT PARTICULARLY STINKY OR FOUL. SHE HAS A GOOD APPEATITE. SHE MAY BENEFIT FROM AN IMMODIUM. 0644: UPDATE. LINOLEUM TILE LAYER JUST BLADDER SCANNED PT AND SHE HAS 400+ ML BLADDER VOLUME. WILL STRAIGHT CATH BEFORE/AFTER SHIFT CHANGE I AM ABLE.
[2019-12-30] MEDS ORDERED: BENADRYL25 MG PO (09:46)
[2019-12-30] MEDS ORDERED: DOCU100 PO (09:46)
[2019-12-30] MEDS ORDERED: AIRDUO RESPICL1 EAC3 INH (09:47)
[2019-12-30] MEDS ORDERED: FURO20 PO (09:47)
[2019-12-30] MEDS ORDERED: MELA3 PO (09:47)
[2019-12-30] MEDS ORDERED: Vsl#3 Capsule1 EACH PO (09:47)
[2019-12-30] MEDS ORDERED: METO50ER PO (09:48)
[2019-12-30] MEDS ORDERED: PRED5 PO (09:49)
[2019-12-30] MEDS ORDERED: Pedi-Dri 100,0060 GM TOP (09:49)
--- NOTE | 2019-12-30 10:56 | NUR ---
PATIENT D/C'D TO [facility], REPORT GIVEN TO CHARLEEN. PICTURES TAKEN OF WOUND PRIOR TO DC AND DRESSING CHANGED TO L BUTTOCKS. LAST STRAIGHT CATH WAS THIS AM AT 0700. PATIENT TRANSFERRED VIA WC TRANSPORT AND PACKET GIVEN TO ORDAINED MINISTER. PATIENT DENIES ANY FURTHER QUESTIONS OR CONCERNS.
== END 2019-12-30 10:55 | DRG 871 ==
LOC: ER 13:24 → ERHOLD 20:02 → MEDS 20:02
PROVIDERS: Family Medicine; Internal Medicine; Pharmacist; Physician Assistant; ADMIT Internal Medicine
DX: A41.9 Sepsis, unspecified organism (principal); L89.153 Pressure ulcer of sacral region, stage 3; I50.21 Acute systolic (congestive) heart failure; J44.1 Chronic obstructive pulmonary disease with (acute) exacerbation; N17.9 Acute kidney failure, unspecified; N32.81 Overactive bladder; Q77.4 Achondroplasia; F17.210 Nicotine dependence, cigarettes, uncomplicated; M19.90 Unspecified osteoarthritis, unspecified site; E87.6 Hypokalemia; E87.70 Fluid overload, unspecified; T50.2X5A Adverse effect of carbonic-anhydrase inhibitors, benzothiadiazides and other diuretics, initial encounter; Y92.239 Unspecified place in hospital as the place of occurrence of the external cause; R33.9 Retention of urine, unspecified; F41.9 Anxiety disorder, unspecified; I11.0 Hypertensive heart disease with heart failure
CPT/HCPCS: 0099U; 36415; 36600; 51702; 71045; 71046; 80048; 80053; 80069; 80202; 81001; 82803; 83605; 83880; 84145; 85025; 85610; 85730; 87040; 87070; 87077; 87147; 87186; 87205; 93306; 94640; 94644; 94660; 94760; 94762; 96374; 96375; 97110; 97112; 97162; 97166; 97530; 97535; 99285-25; A9270-GY; J0690; J0696; J0780; J1650; J1940; J2405; J2543; J2550; J3370; J7030; J7050; J7512; Q0163

== ENCOUNTER → 2020-01-17 | Outpatient (CLI) | payer OTHER ==
[~2020-01-17] MED LIST changes: +AIRDUO RESPICL1 EAC3 INH; +ALBU90OI INH; +BENADRYL25 MG PO; +Buspirone HCl15 MG PO; +CYCL10 PO; +DOCU100 PO; +FURO20 PO; +MELA3 PO; +METO50ER PO; +PRED5 PO; +Pedi-Dri 100,0060 GM TOP; +Vsl#3 Capsule1 EACH PO
[2020-01-17 18:23] LABS: Adenovirus Not Detected (NOT DETECT); Bordetella pertussis Not Detected (NOT DETECT); Chlamydophila pneumoniae Not Detected (NOT DETECT); Coronavirus 229E Not Detected (NOT DETECT); Coronavirus HKU1 Not Detected (NOT DETECT); Coronavirus NL63 Not Detected (NOT DETECT); Coronavirus OC43 Not Detected (NOT DETECT); Human Metapneumovirus Not Detected (NOT DETECT); Human Rhinovirus/Enterovirus Not Detected (NOT DETECT); Influenza A/2009-H1 Not Detected (NOT DETECT); Influenza A/H1 Not Detected (NOT DETECT); Influenza A/H3 Not Detected (NOT DETECT); Influenza B Not Detected (NOT DETECT); Mycoplasma pneumoniae Not Detected (NOT DETECT); Parainfluenza Virus 1 Not Detected (NOT DETECT); Parainfluenza Virus 2 Not Detected (NOT DETECT); Parainfluenza Virus 3 Not Detected (NOT DETECT); Parainfluenza Virus 4 Not Detected (NOT DETECT); Respiratory Syncytial Virus Not Detected (NOT DETECT)
== END ==
LOC: EDSTATUS 11:31 → LAB RH 15:28
PROVIDERS: Student in an Organized Health Care Education/Training Program
DX: Z11.59 Encounter for screening for other viral diseases (principal)
CPT/HCPCS: 0099U